=== PATIENT | female | born 1955 | race Caucasian/White ===

== ENCOUNTER → 2016-10-13 | Outpatient (CLI) | payer OTHER ==
[~2016-10-13] MED LIST: ANAS1TAB19 PO; B-COCAP2 PO; CALCTAB65 PO; FSMD/70 PO; LISI10TA PO; MACUHEALTH PO; MULT-506 PO; NAPR-1169 PO; NUTRTAB48 PO; OMEG10002 PO
--- NOTE | 2016-10-13 14:17 | MAMMOGRAPHY REPORT ---
BILATERAL DIGITAL DIAGNOSTIC MAMMOGRAM TOMOSYNTHESIS WITH CAD: 10/13/2016 CLINICAL HISTORY: History of right breast cancer status post right lumpectomy and radiation therapy, here for interval follow-up. TECHNIQUE: Breast tomosynthesis in addition to standard 2D mammography was performed. Current study was also evaluated with a Computer Aided Detection (CAD) system. Bilateral CC and MLO 2-D and sabina synthesis images and spot magnification right cc and ML views were obtained. COMPARISON: Comparison is made to exams dated: 04/11/2016 mammogram, 10/12/2015 mammogram, 02/09/2015 ultrasound, 02/09/2015 mammogram, 08/28/2013 mammogram, and 10/10/2014 mammogram - [facility]. BREAST COMPOSITION: The tissue of both breasts is heterogeneously dense, which may obscure small ma sses. FINDINGS: Again noted are postsurgical changes in the right upper outer quadrant posteriorly from p rior lumpectomy, including stable density, architectural distortion, and surgical clips at the lumpe ctomy bed. Spot magnification views of the lumpectomy bed demonstrate a benign rim calcified oil cy st at the lumpectomy bed as well as a single coarse benign calcification medial to the lumpectomy be d. No suspicious clusters of calcifications or masses are noted at the lumpectomy bed. A few faint scattered benign-appearing calcifications are seen within the right lateral breast on the spot magn ification cc view, which are stable compared to multiple prior exams and considered benign given the morphology and long-term stability. The remainder of both breasts are stable compared to prior exams, without suspicious masses, calcifi cations, or areas of architectural distortion noted. Benign-appearing left breast calcifications ar e stable compared to prior exams. Oval benign-appearing 9 mm mass seen within the right retroareola r breast middle depth on the cc view is stable compared to prior exams including the 2011 exam, and benign given long-term stability. IMPRESSION: ACR BI-RADS CATEGORY 2: BENIGN Expected post treatment changes in the right breast, without mammographic evidence of malignancy in either breast. Recommend routine bilateral mammograms in one year; I recommend the patient remain a diagnostic patient so that spot magnification views can be performed of the lumpectomy bed. The patient has been verbally notified of the results. Approximately 10% of breast cancers are not detected with mammography. A negative mammographic repor t should not delay biopsy if a clinically suggestive mass is present. Abigail Marie M.D. ah/:10/13/2016 08:43:49 Operating Engineer: Kaity COPELAND(Kaylah)(M), [facility] letter sent: Normal 1/2 BI-RADS Code: ACR BI-RADS Category 2: Benign
== END | disposition home or self-care (01) ==
LOC: C.MAMM 08:10
PROVIDERS: ATTEND Radiology Radiation Oncology
DX: R92.8 Other abnormal and inconclusive findings on diagnostic imaging of breast (principal)

== ENCOUNTER → 2017-02-06 | Outpatient (CLI) | payer OTHER | END | disposition home or self-care (01) | LOC: C.PAPS 08:23 | PROVIDERS: ATTEND Obstetrics & Gynecology | DX: Z01.419 Encounter for gynecological examination (general) (routine) without abnormal findings (principal); R87.610 Atypical squamous cells of undetermined significance on cytologic smear of cervix (ASC-US) ==

== ENCOUNTER → 2017-06-13 | Outpatient (CLI) | payer OTHER ==
[2017-06-13 13:09] VITALS: BP 136/87; PULSE 58; TEMP 36.9; O2SAT 96
--- NOTE | 2017-06-13 14:15 | Radiation Oncology Follow-Up ---
Radiation Oncology Follow-Up Date of Visit Jun 13, 2017. Reason For Visit Annual follow-up Radiation Completion Date 11/13/14 Diagnosis (1) Breast cancer Status: Resolved Onset Date: 08/11/2014 Stage: l (A) Permanent Comment: Abnormal right breast mammogram Status post stereotactic biopsy 07/14/2014 area suspicious for invasive carcinoma. Status post right partial mastectomy and sentinel lymph node biopsy 08/11/2014 Stage [id number] estrogen receptor positive, progesterone receptor negative, HER- 2/xenia negative Status post completion of radiation therapy 11/13/2014 utilizing hypo- fractionation received 5006 cGy Ongoing treatment with Arimidex Last Edited By: Balbina Rodriguez on Jun 10, 2015 15:43 History of Present Illness Ms. Clark is a 62-year-old female without a family history of breast cancer has been followed with screening mammograms. On 08/28/2013 the patient underwent bilateral digital screening mammograms that were compared to her prior exam from 08/23/2012. This study revealed architectural distortion in the right breast middle depth superior region seen on the mediolateral oblique view only. Also noted is a cluster of heterogeneous calcifications in the right breast at 6:00 posterior depth. Additional views were recommended with possible ultrasound. On 09/05/2013 patient underwent a unilateral right digital diagnostic mammogram. This again showed a cluster of various sized linear amorphous calcifications in the right breast inferior medial quadrant, posterior depth. These are more prominent and increased in number from prior study. These were given a BIRADS Category 3 with recommended repeat follow-up examination in 6 months. A unilateral right digital diagnostic mammogram was performed on 03/10/2014. The previously observed clustered indeterminate microcalcifications in the 6:00 far posterior right breast had not significantly changed in number. Nevertheless given their differing shape they are considered indeterminant. There are several additional groupings and clusters of microcalcifications throughout the lateral right breast many of which appear to have been stable going back to 2004. However tissue sampling is recommended by stereotactic guided biopsy. Ultimately the patient agreed to proceed with a stereotactic biopsy of the right breast with marking device inserted and post digital mammographic imaging and radiographic specimen imaging performed on 07/14/2014. 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 Due to the small amount of possible invasive disease only one immunostain was possible. The DCIS is estrogen receptor positive (100%, strong intensity) and the progesterone receptor positive (70%, strong intensity) . The patient was seen by Dr. Navid Garcia to discuss surgical treatment options. The patient agreed to proceed with breast conserving therapy. Therefore on 08/11/2014 the patient underwent a right partial mastectomy and sentinel lymph node biopsy. 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 The tumor measured 0.4 cm in greatest dimension. The new lateral en face margin is involved by lowgrade DCIS. The invasive carcinoma is 0.6 cm away from the non-final anterior margin on the main specimen with additional anterior margin specimen negative. High-grade DCIS with comedonecrosis is associated with the invasive carcinoma. No perineural invasion is identified no lymphovascular invasion is identified. Evaluating the invasive component the estrogen receptors are positive (100%, strong intensity) . Progesterone receptors are negative (less than 1%) HER-2/xenia overexpression is negative. Ki-67 proliferation index is 12% (intermediate). A K903 immunostain shows weak staining in the epithelial cells while the CK 5/6 immunostain is negative within the epithelial cells of interest. 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 The DCIS is 0.2 cm in greatest dimension. This proliferation does not resemble the high- grade DCIS present in association with the invasive carcinoma and is thought to represent a completely unrelated DCIS process. Case [id number]. The patient is scheduled to see Dr. Torrey harris coming for evaluation and discussion of the role of adjuvant therapy. We are asked to see the patient for discussion of the role of adjuvant radiation. The final decision was to proceed with radiation therapy. She would then follow this with an aromatase inhibitor. She was evaluated and found to be a candidate for hypo-fractionation. Radiation was completed 11/13/2014 she received 5006 cGy Interim History She's been doing well over this past year regards to her breast. She is noted no masses or tenderness and no change of the axilla. She's had no swelling of her arm. She is up-to-date on mammography. She continues on antiestrogen therapy with Arimidex. This does cause discomfort of her joints especially her wrists. She also has a burning discomfort on the top of her feet. She takes Naprosyn daily. She takes the 500 mg by mouth morning. She does take food. By taking this medication she is able to tolerate her joint discomforts. She had her most recent mammogram 10/13/2016. This was a diagnostic mammogram. She was pleased to hear that she does not need another mammogram for one year. This will continue to be a diagnostic mammogram and she will have spot magnification views of the lumpectomy bed. Allergies Coded Allergies: Erythromycin (Verified Allergy, Unknown, NAUSEA AND VOMITING, 09/30/14) Home Medications Scheduled Alendronate/Cholecalciferol (Fosamax+D 70MG/2800 Iu), 1 TABLET PO WK Anastrozole (Arimidex), 1 MG PO DAILY Calcium Carbonate-Vitamin D (Calcium 500 + D), 1 TAB PO BID Lisinopril (Prinivil), 10 MG PO DAILY Multivitamin (Multivitamin), 1 TAB PO DAILY Nutritional Supplements (Glucosamine Complex), 1 TAB PO DAILY Melrose-3 Fatty Acids (Fish Oil), 1,000 MG PO DAILY Vitamin B Cmplx/Vitc/Folic Ac (Nephrocaps), 1 CAP PO DAILY [[facility]], 1 TAB PO DAILY Scheduled PRN Naproxen (Naprosyn), 500 MG PO BID PRN for PRN Review of Systems Gastrointestinal: Symptoms: WNL Oral: Symptoms: No Problems Respiratory: Symptoms: WNL Urinary: Symptoms: WNL Skin: Symptoms: No Problems Breast: Right Upper Arm Measurement: 28.3 Right Mid Arm Measurement: 22.6 Right Wrist Measurement: 14.9 Left Upper Arm Measurement: 28.7 Left Mid Arm Measurement: 23.1 Left Wrist Measurement: 14.6 Arm Dominence: Left Patient Cosmetic Evaluation: Excellent Staff Cosmetic Evalaluation: Excellent Physical Exam Vital Signs Date Time Temp Pulse Resp B/P (MAP) Pulse Ox O2 Delivery O2 Flow Rate FiO2 06/13/17 13:09 36.9 58 16 136/87 96 Pain: Side: Bilateral Pain Location: None Patient Pain Scale: 0 - 10 Initial Pain Intensity: 0.0 Fatigue: None General Appearance: no apparent distress Eyes: normal inspection, EOMI ENT: normal ENT inspection, hearing grossly normal Neck: no adenopathy, thyroid normal Respiratory/Chest: lungs clear, no respiratory distress, no accessory muscle use Breast: Breast examination reveals well-healed incisions of the right breast. There are no masses or tenderness no axillary adenopathy. There are fibrous changes in the area of the incision. She does have some mild telangiectasia along the incision line. There are no nipple changes. Using the [place] score cosmesis she has a good outcome. The left breast showed no masses or tenderness and no axillary adenopathy. Cardiovascular: regular rate, rhythm, no gallop, no murmur Extremities: no pedal edema Neurologic/Psychiatric: no motor/sensory deficits, alert, normal mood/affect Skin: warm/dry Additional Studies Patient: MAYA CLARK [facility] Rec: [id number] Address1: [address] [place] [address] Address2: Acct ID: [id number] Date: 1955 Sex: F Ref Phy: Aleena Ragland M.D. Att Phy: Balbina Rodriguez PA-C Fernanda Phy: Brooks Perez III, M.D. Inter Phy: Abigail Marie MD [facility] Zip: [place] [address] SC: C.MAMM Report #: [id number] Clinical Studies Specialist: EUGENIO Diagnosis: 6 MONTH F/U BILATERAL Service Date: 10/13/16 MNE: [id number] Ordering Dr: Balbina Rodriguez PA-C CC: Balbina Rodriguez PA-C CONF: DICTATED BY: Abigail Marie MD MAMMOGRAPHY REPORT BILATERAL DIGITAL DIAGNOSTIC MAMMOGRAM TOMOSYNTHESIS WITH CAD: 10/13/2016 CLINICAL HISTORY: History of right breast cancer status post right lumpectomy and radiation therapy, here for interval follow-up. TECHNIQUE: Breast tomosynthesis in addition to standard 2D mammography was performed. Current study was also evaluated with a Computer Aided Detection (CAD ) system. Bilateral CC and MLO 2-D and tomosynthesis images and spot magnification right cc and ML views were obtained. COMPARISON: Comparison is made to exams dated: 04/11/2016 mammogram, 10/12/2015 mammogram, 02/09/2015 ultrasound, 02/09/2015 mammogram, 08/28/2013 mammogram, and mammogram - [facility]. BREAST COMPOSITION: The tissue of both breasts is heterogeneously dense, which may obscure small masses. FINDINGS: Again noted are postsurgical changes in the right upper outer quadrant posteriorly from prior lumpectomy, including stable density, architectural distortion, and surgical clips at the lumpectomy bed. Spot magnification views of the lumpectomy bed demonstrate a benign rim calcified oil cyst at the lumpectomy bed as well as a single coarse benign calcification medial to the lumpectomy bed. No suspicious clusters of calcifications or masses are noted at the lumpectomy bed. A few faint scattered benign-appearing calcifications are seen within the right lateral breast on the spot magnification cc view, which are stable compared to multiple prior exams and considered benign given the morphology and long-term stability. The remainder of both breasts are stable compared to prior exams, without suspicious masses, calcifications, or areas of architectural distortion noted. Benign-appearing left breast calcifications are stable compared to prior exams. Oval benign-appearing 9 mm mass seen within the right retroareolar breast middle depth on the cc view is stable compared to prior exams including the 2012 exam, and benign given long-term stability. IMPRESSION: ACR BI-RADS CATEGORY 2: BENIGN Expected post treatment changes in the right breast, without mammographic evidence of malignancy in either breast. Recommend routine bilateral mammograms in one year; I recommend the patient remain a diagnostic patient so that spot magnification views can be performed of the lumpectomy bed. The patient has been verbally notified of the results. Approximately 10% of breast cancers are not detected with mammography. A negative mammographic report should not delay biopsy if a clinically suggestive mass is present. Abigail Marie M.D. ah/:10/13/2016 08:43:49 Outreach Worker: Kaity COPELAND(Kaylah)(Geovanny), [facility] letter sent: Normal 1/2 BI-RADS Code: ACR BI-RADS Category 2: Benign Dictated by: Abigail Marie MD Signed by: Abigail Marie MD Assessment & Plan Plan: Continue annual mammography. As reviewed above these will be digital diagnostic mammograms with spot magnification views at the lumpectomy site. Continue follow-up with medical oncology and her primary care physician. She continues on antiestrogen therapy with Arimidex. We discussed the use of the Naprosyn. She does only take this once a day. She does take it with food. We asked her to return to our office in 1 year. She will call if she has any questions or concerns in the interim. We did also discuss the small amount of telangiectasia. We reviewed that this is later side effect of the radiation. Total Time In Follow-Up I spent 20 minutes speaking to the patient and perform examination. A 15 minutes reviewing information in completing this note. Copy To Alexander Hirsch M.D.; Brooks Perez III, M.D. Problem Qualifiers (1) Breast cancer: Breast location: central portion of breast Estrogen receptor status: positive Patient sex: female Laterality: right Qualified Codes: C50.111 - Malignant neoplasm of central portion of right female breast; Z17.0 - Estrogen receptor positive status [ER+]
== END | disposition home or self-care (01) ==
LOC: C.ONC 12:59
PROVIDERS: ATTEND Physician Assistant Medical
DX: Z08 Encounter for follow-up examination after completed treatment for malignant neoplasm (principal); Z92.3 Personal history of irradiation; Z85.3 Personal history of malignant neoplasm of breast

== ENCOUNTER → 2017-10-16 | Outpatient (CLI) | payer OTHER ==
--- NOTE | 2017-10-16 14:42 | MAMMOGRAPHY REPORT ---
BILATERAL DIGITAL DIAGNOSTIC MAMMOGRAM TOMOSYNTHESIS WITH CAD AND TARGETED RIGHT ULTRASOUND: 8 CLINICAL HISTORY: 62-year-old woman with a personal history of right breast cancer status post breast conservation treatment presents for annual bilateral mammography. Lumpectomy was performed 08/11/20 14. TECHNIQUE: Bilateral breast tomosynthesis in addition to standard 2D mammography was performed. Spot magnification right CC and ML views were also obtained. Current study was also evaluated with a [facility] Aided Detection (CAD) system. COMPARISON: Comparison is made to exams dated: 10/13/2016 mammogram, 04/11/2016 mammogram, 10/12/2015 m ammogram, 02/09/2015 ultrasound, 02/09/2015 mammogram, and 08/28/2013 mammogram - [facility]. BREAST COMPOSITION: The tissue of both breasts is heterogeneously dense, which may obscure small mas ses. FINDINGS: There is expected architectural distortion and surgical clips in the 9:00 far posterior and retroareolar right breast, at the site of prior lumpectomy. There is a benign rim calcification in the 9:00 posterior right breast, and a few very faint punctate microcalcifications in the superior ri ght breast. No new suspicious grouping or cluster of calcifications identified in the right breast. No obvious new mass, asymmetry or unexpected architectural distortion. There are several stable groupings of microcalcifications in the left breast. 2 very faint groupings of punctate microcalcifications are seen in the lateral middle to posterior breast and a grouping of round microcalcifications are seen in the medial, middle one third of the breast on the CC view. Wh en comparing back to prior available mammograms, these are stable dating back to at least 2009 and wi th 8 years of stability considered benign. No new suspicious mass, architectural distortion or clust er of suspicious microcalcifications is seen in the left breast. During diagnostic evaluation, the patient also reported an abnormal sensation in the lower outer infe rior right breast along the surgical scar, particularly if she twists and moves her arm a certain way . Therefore targeted ultrasound was performed in the area of concern including the 6:00, 7:00 and 8: 00 axes near the inframammary fold. There is decreasing fluid collection at the surgical bed in the 6:00 axes. Sonographically normal tissue is otherwise identified, without a suspicious solid or cyst ic mass. IMPRESSION: ACR BI-RADS CATEGORY 2: BENIGN, TARGETED ULTRASOUND ACR BI-RADS CATEGORY 2: BENIGN 1. Expected post treatment changes in the right breast, and stable groupings microcalcifications in the left breast. No mammographic evidence of malignancy bilaterally. 2. No targeted sonographic abnormality or evidence of malignancy in the area of abnormal sensation n ear the surgical scar and inframammary fold of the right breast. Therefore, clinical follow-up is re commended, as biopsy of a clinically suspicious mass should not be precluded by negative imaging. 3. Otherwise, recommend bilateral diagnostic mammography in one year, given the personal history of right breast cancer and posterior location of the patient's malignant microcalcifications. These results and recommendations were discussed with the patient at the time of the exam. Approximately 10% of breast cancers are not detected with mammography. A negative mammographic report should not delay biopsy if a clinically suggestive mass is present. Eliane Parker M.D. ay/:10/16/2017 12:07:32 Developing Machine Operator: Kaity COPELAND(Kaylah)(Geovanny), [facility] letter sent: Normal 1/2 BI-RADS Code: ACR BI-RADS Category 2: Benign Ultrasound BI-RADS: ACR BI-RADS Category 2: Benign
== END | disposition home or self-care (01) ==
LOC: C.MAMM 09:49
PROVIDERS: ATTEND Physician Assistant Medical
DX: R92.8 Other abnormal and inconclusive findings on diagnostic imaging of breast (principal)